=== PATIENT | female | born 1985 | race Caucasian/White ===

== ENCOUNTER 2018-09-29 07:47 | Outpatient (CLI) | payer MEDICAID | END 2018-09-29 07:48 | disposition home or self-care (01) | LOC: C.CARD 07:47 | DX: R07.9 Chest pain, unspecified (principal); R00.2 Palpitations; R55 Syncope and collapse ==

== ENCOUNTER 2018-11-04 19:16 | Outpatient (CLI) | payer MEDICAID | END 2018-11-04 19:17 | disposition home or self-care (01) | LOC: C.SLEEP 19:17 | DX: G47.33 Obstructive sleep apnea (adult) (pediatric) (principal) ==